=== PATIENT | male | born 1980 | race Caucasian/White ===

== ENCOUNTER 2017-06-19 17:52 | Inpatient (IN) ==
[2017-06-19] MEDS ORDERED: Haloperidol Lactate 5 MG/ML VIAL IM PRN (18:16)
[2017-06-19] MEDS ORDERED: *HR* LORazepam 1 MG TABLET PO PRN (18:16)
[2017-06-19] MEDS ORDERED: MOM Conc 10 ML UD.LIQ PO PRN (18:16)
[2017-06-19] MEDS ORDERED: Acetaminophen 325 MG TABLET PO PRN (18:16)
[2017-06-19] MEDS ORDERED: Mag Hydrox/Al Hydrox/Simeth 30 ML UDC PO PRN (18:16)
[2017-06-19] MEDS ORDERED: *HR* LORazepam 2 MG/ML VIAL IM PRN (18:16)
[2017-06-19] MEDS: traZODone 50 MG TABLET PO PRN (20:01)
--- NOTE | 2017-06-20 13:08 | Psychiatry History & Physical ---
Date of Encounter: 06/20/17 Time of Encounter: 13:06 History of Present Illness Patient Stated Chief Complaint: Suicidal ideation Medicare Admission Attestation: For traditional Medicare patients the provided hospital inpatient services are reasonable and necessary and in the case of services not specified as inpatient -only under 42 CFR 419.22 (n), that they are appropriately provided as inpatient services in accordance 42 CFR 412.3. For Critical Access Hospital the patient may reasonably be expected to be discharged or transferred to a hospital within 96 hours after admission to the Critical Access Hospital. Admitted From: Hospital to Hospital Transfer ([facility]) History of Present Illness: Mr. Menendez is a 36 year old male admitted by Dr. zepeda from [facility] for depression and suicidal ideation. Patient stressed out by being homeless and unable to support himself financially. He is noncompliant with any treatment for medication. In the past. He was medication and counseling and has no insight into his illness. He is irritable and agitated and uncooperative with assessment. He asked for help but would not elaborate. He endorsed suicidal ideation and he is ambivalent about taking medication and not interested in counseling. He was guarded and irritable and not willing to provide information. UDS was negative. And he is not on any medication. Past Med Surg Social Fam HX - Past Medical History Medical history: other - Past Psychiatric History Psychiatric history: Reports: no psych history - Social History Smoking Status: Former smoker Smokeless Tobacco Status: No (patient has not had a cigarette in two days would like to stop) Alcohol use: none Drug use: marijuana - Family History Father History Unknown: Yes Adopted: [place]: Sammy Loza Family Member Ethnicity: Non- Living Status: Age at : 36 Cause of : "enlarged heart exploded" Hx Family Cardiac Disorders: Yes Mother History Unknown: Yes Adopted: [place]: Sarah Loza Age: 48 Family Member Ethnicity: Non- Living Status: Still Living Medications & Allergies No Known Home Drugs 06/19/17 [History] 3 Allergy/AdvReac Type Severity Reaction Status Date / Time No Known Allergies Allergy Verified 06/19/17 18:39 Review of Systems Psychiatric: Reports: depression, suicidal ideation, irritability Mental Status Exam Patient orientation: Yes Person, Yes Time, Yes Place Level of alertness: Alert Patient appearance: Appropriate, Unkempt, Disheveled, Thin Behavior: calm, agitated, hostile, uncooperative, guarded Psychomotor activity: Increased Eye contact: Avoids Eye Contact Mood description: Angry, Depressed, Irritable Affect description: congruent with mood, labile, dysphoric Speech pattern: Normal rate, Normal rhythm, Normal tone, Repetitive, Includes Profanity Speech volume: Normal Thought process: Linear, Goal Oriented, Tangential, Thought Blocking, Evasive Thought content: Yes Suicidal ideation, No Homicidal ideation, No Overt delusions Perceptual disturbances: No Auditory hallucinations, No Visual hallucinations Attention span: Capable of Focused Attention Memory description: Grossly Intact Patient reliability: Not Reliable Historian Intelligence estimate: Average Judgment: Limited Insight: Partial Results - Vital Signs Vital signs: Temp Pulse Resp BP 97.6 F 56 18 114/74 06/20/17 08:11 06/20/17 08:11 06/20/17 08:11 06/20/17 08:11 Assessment and Plan (1) Bipolar disorder, mixed Current visit: Yes Status: Acute Plan: Admit inpatient for safety and stabilization, Close observation, Suicide Precautions per unit protocol, Encourage participation in unit milieu, Group Therapy, Monitor sleep, Monitor appetite Additional Plan: 1. Effexor XR 75 mg daily 2. Olanzapine 5 mg at at bedtime Benefits and side effects were discussed with patient, he is agreeable, we will monitor Risks, benefits, side effects, alternatives discussed w/pt: Yes Patient agreeable to treatment: Yes Estimated Length of Stay (Days): 5
[2017-06-20] MEDS: Venlafaxine XR (24 HR) 75 MG CAP.ER.24H PO SCH (14:19)
[2017-06-20] MEDS: hydrOXYzine pamoate 25 MG CAPSULE PO PRN (20:23)
[2017-06-20] MEDS: OLANZapine 5 MG TAB.RAPDIS PO SCH (20:23)
[2017-06-20] MEDS: traZODone 50 MG TABLET PO PRN (20:24)
[2017-06-21] MEDS: Venlafaxine XR (24 HR) 75 MG CAP.ER.24H PO SCH (08:52)
--- NOTE | 2017-06-21 12:50 | Psychiatry Progress Note ---
Date of Encounter: 06/21/17 Time of Encounter: 12:48 Subjective Interval history: Patient is seen for follow-up. He denies suicidal or homicidal ideation. Tolerated new medication and denies any side effects. Reported improved sleep and less irritable. Affect continued to be guarded and constricted. Staff report he is cooperative and compliant with his medication. His discharge plans are ongoing well with possible placement in respite. Review of Systems Psychiatric: Reports: depression, suicidal ideation, irritability Objective: Exam Patient orientation: Yes Person, Yes Time, Yes Place Level of alertness: Alert Patient appearance: Appropriate, Unkempt Behavior: calm, cooperative, guarded, withdrawn Psychomotor activity: Slowed Eye contact: Avoids Eye Contact Mood description: Depressed Affect description: congruent with mood, constricted Speech pattern: Normal rate, Normal rhythm, Normal tone, Impoverished Speech volume: Normal Thought process: Linear, Goal Oriented Thought content: Yes Suicidal ideation, Yes Homicidal ideation, No Overt delusions, Yes Obsessive thoughts Perceptual disturbances: No Auditory hallucinations, No Visual hallucinations Judgment: Fair Insight: Partial Results - Vital Signs Vital Signs: Temp Pulse Resp BP 97.6 F 54 16 132/83 06/21/17 08:34 06/21/17 08:34 06/21/17 08:34 06/21/17 08:34 Assessment and Plan (1) Bipolar disorder, mixed Current visit: Yes Status: Acute Plan: Continue hospitalization, Close observation, Suicide Precautions per unit protocol, Encourage participation in unit milieu, Group Therapy, Monitor sleep, Monitor appetite Risks, benefits, side effects, alternatives discussed w/pt: Yes Patient agreeable to treatment: Yes Consult Discharge Plan - Plan Referrals: NONE,PCP [Primary Care Provider] -
[2017-06-21] MEDS: hydrOXYzine pamoate 25 MG CAPSULE PO PRN (20:36)
[2017-06-21] MEDS: traZODone 50 MG TABLET PO PRN (20:37)
[2017-06-21] MEDS: OLANZapine 5 MG TAB.RAPDIS PO SCH (20:37)
[2017-06-22] MEDS: Venlafaxine XR (24 HR) 75 MG CAP.ER.24H PO SCH (08:44)
[2017-06-22 09:05] VITALS: BP 128/77
--- NOTE | 2017-06-22 12:57 | Discharge Summary ---
Date of Encounter: 06/22/17 Time of Encounter: 12:53 Diagnosis - Discharge Diagnosis (1) Bipolar disorder, mixed Status: Acute Medications - Discharge Medications Prescriptions: hydrOXYzine pamoate [HydrOXYzine Pamoate] 25 mg PO TID PRN #60 capsule PRN Reason: Anxiety OLANZapine [Zyprexa Zydis] 5 mg PO HS #30 tab.rapdis Venlafaxine XR (24 HR) [Effexor XR] 75 mg PO DAILY #30 cap.er.24h OLANZapine [Zyprexa Zydis] 5 mg PO HS #30 tab.rapdis 06/22/17 [Rx] Venlafaxine XR (24 HR) [Effexor XR] 75 mg PO DAILY #30 cap.er.24h 06/22/17 [Rx] hydrOXYzine pamoate [HydrOXYzine Pamoate] 25 mg PO TID PRN #60 capsule 06/22/17 [Rx] 3 Allergy/AdvReac Type Severity Reaction Status Date / Time No Known Allergies Allergy Verified 06/19/17 18:39 Provider Date of admission: 06/19/17 17:52 Primary care physician: PCP NONE Discharging clinician: Ankit Gerber Assessment and Plan - Patient/Caregiver Discharge Instructions Activity: resume usual activities as tolerated Diet: regular diet - Follow up Plan Follow up with: [facility] [Outside] (You are going into mental health respite at [facility] on discharge from the hospital. While there, clinic staff will open a case for you to become a client, and you will be seen daily by the clinic counselors and family independence case manager, both individually and in group. You will also be scheduled to see the psychiatric provider for outpatient psychiatric assessment and medication management.) Functional capacity at discharge: independent ambulation Overall status at discharge: Stable Disposition: Home, Self-Care Hospital Course Hospital course: Mr. Menendez is a 36 year old male admitted for depression with suicidal and homicidal ideation. For details of admission please see H&P On the unit, patient was resistant initially to take her medication, later on he was agreeable to start taking Effexor XR 75 mg daily and olanzapine 5 mg at bedtime. In addition to when necessary hydroxyzine. Patient tolerated the medication denied any side effects, reported improved sleep and appetite, he was less anxious and denied any suicidal ideation or homicidal ideation. He participated in some activities and was cooperative and compliant. His discharge plans were completed by the social worker psychiatric with placement in respite to continue his treatment. On discharge patient was medically stable, denied any side effects from medication and denied any suicidal or homicidal thoughts. He was discharged in stable condition. - Time Spent with Patient Total time spent providing and/or coordinating discharge services: Less than 30 minutes Quality - Multiple Antipsychotics Patient discharged on 2 or more antipsychotic medications: No Procedures - Procedures Procedures: Medication Management, Crisis Stabilization, Supportive Therapy, Group Therapy, Psychoeducational Therapy Mental Status Exam - Mental Status Exam Patient orientation: Yes Person, Yes Time, Yes Place Level of alertness: Alert Patient appearance: Appropriate, Unkempt Behavior: calm, cooperative, guarded Psychomotor activity: Normal Eye contact: Minimal Contact Mood description: Euthymic/stable, Depressed Affect description: congruent with mood, constricted Speech pattern: Normal rate, Normal rhythm, Normal tone Speech Volume: Normal Thought process: Linear, Goal Oriented Thought Content: No Suicidal ideation, No Homicidal ideation, No Overt delusions Perceptual Disturbances: No Auditory hallucinations, No Visual hallucinations Judgment: Limited Insight: Partial
== END 2017-06-22 16:45 | disposition home or self-care (01) | DRG 753 ==
LOC: 1ANU 17:52
PROVIDERS: ADMIT Psychiatry & Neurology Psychiatry; ATTEND Psychiatry & Neurology Psychiatry